=== PATIENT | female | born 1990 ===

== ENCOUNTER 2018-10-14 23:21 | Emergency (ER) | payer SELFPAY ==
[2018-10-14 23:30] VITALS: RESP 20
[2018-10-14 23:44] LABS: BASO % 0.4 % (0.0-2.0); EOS % 0.5 % (0.0-4.0); LYMPH # 3.3 K/uL (1.0-4.3); LYMPH % 34.2 % (20.0-40.0); MEAN CELL VOLUME 84.3 fL (81.0-99.0); MEAN CORPUSCULAR HEMOGLOBIN 28.4 pg (27.0-31.0); MEAN CORPUSCULAR HGB CONC 33.7 g/dL (33.0-37.0); MEAN PLATELET VOLUME 7.1 fL (7.2-11.7); MONO # 0.7 K/uL (0.0-0.8); MONO % 6.8 % (0.0-10.0); NEUT # 5.7 K/uL (1.8-7.0); NEUT % 58.1 % (50.0-75.0); RBC 4.21 Mil/uL (3.80-5.20); WHITE BLOOD COUNT 9.7 K/uL (4.8-10.8)
[2018-10-14] MEDS ORDERED: levETIRAcetam 1,000 MG in Sodium Chloride 0.9% 100 ML IVPB ONE (23:44)
--- NOTE | 2018-10-14 23:44 | C.PDOC ---
History Of Present Illness Patient presents s/p two witnessed seizures. Had 60 second tonic clonic seizure, which resolved, then had nother seizure this time lasting about 5 seconds. No seizure activity throughout transport. Patient now AAOx3 with no complaints. There was no head injury. Patient had similar seizures about 6 months ago, saw a neurologist in [place] who did an EEG and MRI which came out negative. She was thus not started on any antiepileptics. She has not had any issues until today. No other medical problems. Smokes marijuana but denies any EtOH, smoking, or other drug use. Time Seen by Provider: 10/14/18 23:24 Chief Complaint (Nursing): Seizure Past Medical History Reviewed: Historical Data, Nursing Documentation, Vital Signs Vital Signs: Last Vital Signs Temp 99.1 F 10/14/18 23:25 Pulse 73 10/14/18 23:25 Resp 20 10/14/18 23:25 BP 118/65 10/14/18 23:25 Pulse Ox 99 10/14/18 23:25 - Medical History PMH: Seizures Family History: States: Unknown Family Hx - Social History Hx Alcohol Use: No Hx Substance Use: Yes - Immunization History Hx Tetanus Toxoid Vaccination: No Hx Influenza Vaccination: No Hx Pneumococcal Vaccination: No Review Of Systems Except As Marked, All Systems Reviewed And Found Negative. Constitutional: Negative for: Fever Cardiovascular: Negative for: Chest Pain Respiratory: Negative for: Cough, Shortness of Breath Gastrointestinal: Negative for: Nausea, Vomiting, Abdominal Pain, Diarrhea Musculoskeletal: Negative for: Arm Pain, Back Pain, Leg Pain Skin: Negative for: Rash Neurological: Positive for: Seizures. Negative for: Weakness, Numbness, Altered Mental Status, Headache, Dizziness Physical Exam - Physical Exam Appears: Well, Non-toxic, No Acute Distress Skin: Normal Color, Warm, Dry, No Diaphoretic Head: Atraumatic, Normacephalic Eye(s): bilateral: Normal Inspection, PERRL, EOMI Oral Mucosa: Moist Cardiovascular: Rhythm Regular Respiratory: Normal Breath Sounds Gastrointestinal/Abdominal: Normal Exam Extremity: Bilateral: Atraumatic Neurological/Psych: Oriented x3, Normal Speech, Normal Motor, Normal Sensation ED Course And Treatment - Laboratory Results Result Diagrams: 10/14/18 23:41 10/14/18 23:41 O2 Sat by Pulse Oximetry: 99 Medical Decision Making Medical Decision Making keppra ivpb given. 1L NS bolus given. Patient with no seizure activity throughout ED course. Lab results discussed with patient. Advised outpatient followup with the neurologist that she previously saw. Patient stable for discharge. Disposition - Disposition Disposition: HOME/ ROUTINE Disposition Time: 00:00 Condition: STABLE Additional Instructions: DREAD LEVINE, thank you for letting us take care of you today. Your provider was Catina Davila MD and you were treated for SEIZURE. The emergency medical care you received today was directed at your acute symptoms. If you were prescribed any medication, please fill it and take as directed. It may take several days for your symptoms to resolve. Return to the Emergency Department if your symptoms worsen, do not improve, or if you have any other problems. Please contact your doctor or call one of the physicians/clinics you have been referred to that are listed on the Patient Visit Information form that is included in your discharge packet. Bring any paperwork you were given at discharge with you along with any medications you are taking to your follow up visit. Our treatment cannot replace ongoing medical care by a primary care provider outside of the emergency department. Thank you for allowing the [facility] team to be part of your care today. If you had an X-Ray or CT scan: A Radiologist will review the ED reading if any change in treatment is needed we will contact you. If you had a blood, urine, or wound culture: It will take several days for the results, if any change in treatment is needed we will contact you. If you had an STI test: It will take 48 hours for the results. Please call after 1 week if you have not heard back. Instructions: Seizures, Adult (DC) Forms: YES.TAP ([facility]) - Clinical Impression Clinical Impression: Seizure
[2018-10-14 23:57] LABS: BLOOD UREA NITROGEN 14 mg/dL (7-17); CALCIUM 8.5 mg/dl (8.6-10.4); GFR NON-AFRICAN AMERICAN > 60
[2018-10-15] MEDS ORDERED: Sodium Chloride 0.9% 1,000 ML IV ONE (00:05)
[2018-10-15 01:01] VITALS: BP 100/53; PULSE 66; TEMP 98.6
[2018-10-15 18:19] VITALS: O2SAT 99
== END 2018-10-15 01:14 | disposition home or self-care (01) ==
LOC: C.ER 23:21
DX: R56.9 Unspecified convulsions (principal)
CPT/HCPCS: 80048; 82948; 85025; 96361; 96365; 99285; J1953; J7030